=== PATIENT | male | born 1975 | race Hispanic/Latino ===

== ENCOUNTER 2020-06-08 17:11 | Emergency (ER) | payer SELFPAY ==
[~2020-06-08] VITALS: Ht 152.4 cm; Wt 70.0 kg
[2020-06-08] MEDS ORDERED: KEFLEX500 M1 PO (20:05)
[2020-06-08] MEDS ORDERED: NO HOME MEDS (20:14)
[2020-06-08 20:25] VITALS: BP 131/80
== END 2020-06-08 20:25 | disposition home or self-care (01) | DRG 605 ==
LOC: ED 17:11
DX: S61.234A Puncture wound without foreign body of right ring finger without damage to nail, initial encounter (principal); L03.011 Cellulitis of right finger; W60.XXXA Contact with nonvenomous plant thorns and spines and sharp leaves, initial encounter; Y93.89 Activity, other specified; Y92.007 Garden or yard of unspecified non-institutional (private) residence as the place of occurrence of the external cause